=== PATIENT | male | born 1980 ===

== ENCOUNTER 2022-02-06 18:19 | Outpatient (REF) | payer BC, SELFPAY ==
[2022-02-06 23:18] LABS: ALT 22 U/L (16-63); AST 25 U/L (15-37); Albumin 4.4 g/dL (3.4-5.0); Alkaline Phosphatase 112 U/L (46-116); BUN 16 mg/dL (7-18); Bilirubin, Total 0.5 mg/dL (0.2-1.0); CREATININE 0.8 mg/dL (0.70-1.30); Calculated LDL 116 mg/dL (<100); Chloride 102 mmol/L (98-107); Cholesterol 193 mg/dL (<200); Estimated GFR 113.32 (mL/min/1.73m2); Glucose 90 mg/dL (74-106); HDL Cholesterol 36 mg/dL (40-60); Sodium 137 mmol/L (136-145); Total Protein 8.2 g/dL (6.4-8.2); Triglyceride 208 mg/dL (<150)
[2022-02-07 00:05] LABS: Bilirubin Negative (Negative); Blood Moderate (Negative); Clarity Clear (Clear); Glucose Negative (Negative); Ketones Negative (Negative); Leukocyte Esterase Negative (Negative); Nitrite Negative (Negative); Urobilinogen 0.2 EU/dL (Up TO 0.2)
[2022-02-07 00:06] LABS: Bacteria Negative HPF (Negative); C & S Indicated? No; Casts Negative LPF (Negative); Crystals Negative HPF (Negative); Epithelial Cells Few HPF (Negative); Mucus Negative (Negative); WBC 0-2 HPF (0-5)
[2022-02-08 08:52] LABS: HIV-1/2 Ag & Ab Screen Negative (Negative)
[2022-02-08 09:21] LABS: Hepatitis C Ab w Rflx HCV PCR Negative (Negative)
[2022-02-09 16:01] LABS: Chlamydia Result Negative (Negative); GC Result Negative (Negative)
== END 2022-02-06 18:20 | disposition home or self-care (01) ==
LOC: NCHCN 18:19
PROVIDERS: Visit Provider Nurse Practitioner Family
DX: Z00.00 Encounter for general adult medical examination without abnormal findings (principal); R31.9 Hematuria, unspecified; Z11.4 Encounter for screening for human immunodeficiency virus [HIV]; Z11.59 Encounter for screening for other viral diseases; Z13.220 Encounter for screening for lipoid disorders; Z11.3 Encounter for screening for infections with a predominantly sexual mode of transmission
CPT/HCPCS: 80053; 80061; 86803; 87389; 87491; 87591; 81003; 81015